=== PATIENT | male | born 1940 | race Caucasian/White ===

== ENCOUNTER 2017-12-19 05:38 | Inpatient (IN) | payer MEDICARE ==
[~2017-12-19] VITALS: Ht 180.3 cm; Wt 88.6 kg
[~2017-12-19 05:38] MED LIST: METOPROLOL SUCC25 MG PO; Z.0.BENICAR HCT 401 PO; Z.0.LIPITOR40 MG PO; Z.0.LORTAB 7.5-5001 PO; Z.0.LYRICA100 MG PO; Z.0.LYRICA50 MG PO
[2017-12-19] MEDS ORDERED: MORPHINE SULFATE 2 MG/ML SYR IV STA (05:52)
[2017-12-19] MEDS ORDERED: ONDANSETRON HCL INJ 2 MG/ML VIAL IV STA (05:52)
[2017-12-19] MEDS ORDERED: SODIUM CHLORIDE 0.9% 1000ML 1,000 ML IV ONE (06:00)
[2017-12-19] MEDS ORDERED: DIATRIZOATE MEGL/DIATRIZOA SOD 30 ML BTL PO ONE (06:04)
[2017-12-19 06:34] LABS: BASOPHILS # (AUTO) 0.1 (0.0-0.1); BASOPHILS % 0.2 % (0.0-1.0); HEMATOCRIT 45.5 % (38.2-49.6); HEMOGLOBIN 15.5 g/dL (14.0-18.0); LYMPHOCYTES # (AUTO) 1.8 (1.0-3.2); LYMPHOCYTES % 6.9 % (18.0-39.1); MEAN CORPUSCULAR HGB CONC 34.1 g/dL (31-35); MONOCYTES # (AUTO) 2.3 (0.2-0.8); MONOCYTES % 8.7 % (4.4-11.3); NEUTROPHILS # (AUTO) 21.7 (2.1-6.9); NEUTROPHILS % 83.3 % (38.7-80.0); PLATELET COUNT 289 x10e3/uL (140-360); RED BLOOD COUNT 5.17 x10e6/uL (4.3-5.7); RED CELL DISTRIBUTION WIDTH 13.9 % (11.7-14.4)
[2017-12-19 06:40] LABS: BILIRUBIN,URINE NEGATIVE (NEGATIVE); CLARITY,URINE CLEAR (CLEAR); COLOR,URINE YELLOW (YELLOW); KETONES,URINE NEGATIVE (NEGATIVE); LEUKOCYTE ESTERASE ,URINE NEGATIVE (NEGATIVE); NITRITE,URINE NEGATIVE (NEGATIVE); PROTEIN,URINE DIPSTICK NEGATIVE (NEGATIVE); URINE UROBILINOGEN 0.2 mg/dL (0.2 - 1)
[2017-12-19 06:49] LABS: BACTERIA,URINE RARE /HPF; EPITHELIAL CELLS,URINE RARE /LPF; TRANSITIONAL EPI CELLS,URINE RARE; WBC,URINE (MAN) 0-5 /HPF (0-5)
[2017-12-19 06:52] LABS: ALBUMIN 4.1 g/dL (3.5-5.0); ALBUMIN/GLOBULIN RATIO 1.2 (0.8-2.0); ANION GAP 18.8 mmol/L (8-16); CALCIUM 9.9 mg/dL (8.4-10.2); CREATININE, SERUM 1.48 mg/dL (0.72-1.25); POTASSIUM 3.8 mmol/L (3.5-5.1)
[2017-12-19] MEDS ORDERED: LEVOFLOXACIN 500MG/D5W 100ML 100 ML IV ONE (06:54)
[2017-12-19 06:58] LABS: CREATINE KINASE MB 2.6 ng/mL (0-5.0)
[2017-12-19 07:47] LABS: LYMPHOCYTES % (MANUAL) 8 % (19-48); MONOCYTES % (MANUAL) 7 % (3.4-9.0); NEUTROPHILS % (MANUAL) 85 % (40-74); PLATELET ESTIMATE ADEQUATE; PLATELET MORPHOLOGY COMMENT FEW GIANT; RBC MORPHOLOGY COMMENT NORMAL
[2017-12-19 07:48] LABS: ANISOCYTOSIS SLIGHT
[2017-12-19] MEDS ORDERED: LEVOFLOXACIN 500MG/D5W 100ML IV SCH (08:45)
[2017-12-19] MEDS ORDERED: MORPHINE SULFATE 2 MG/ML SYR IV PRN (08:45)
--- NOTE | 2017-12-19 08:46 | Diagnostic Imaging Report ---
PROCEDURE: CT ABDOMEN AND PELVIS WITH CONTRAST TECHNIQUE: The abdomen and pelvis were scanned utilizing a multidetector helical scanner from the diaphragm to the lesser trochanter after the IV administration of 100 cc of Isovue 370 and the oral administration of Gastrografin mixed with water. Coronal and sagittal multiplanar reformations were obtained. DLP: 670.44 mGy-cm COMPARISON: Patients [facility], CT, CT ABDOMEN/PELVIS WO, 01/02/2016, 15:45. INDICATIONS: ABDOMINAL PAIN, NAUSEA AND VOMITING FINDINGS: LOWER THORAX: Normal. HEPATOBILIARY: No focal hepatic lesions. No biliary ductal dilatation. The gallbladder is absent. SPLEEN: No splenomegaly. PANCREAS: No focal masses or ductal dilatation. ADRENALS: No adrenal nodules. KIDNEYS/URETERS: No hydronephrosis, stones, or solid mass lesions. Cysts on both kidneys are noted. PELVIC ORGANS/BLADDER: Bladder has an irregular contour with fat interface near the wall appearing unchanged. PERITONEUM / RETROPERITONEUM: No free air or fluid. LYMPH NODES: No lymphadenopathy. VESSELS: Scattered atherosclerotic calcification. There are two right renal arteries. GI TRACT: Dilated loops of small bowel in the left upper quadrant and mid abdomen represent small bowel obstruction likely secondary to adhesions. The stomach is also dilated. Bowel sutures in the sigmoid colon region are noted. BONES AND SOFT TISSUES: Bilateral pars interarticularis defects at L5. Scattered degenerative changes of the spine. Mild anterior listhesis of L4 on L5. IMPRESSION: Dilated loops of small bowel in the left upper quadrant and mid abdomen compatible with an incomplete small bowel obstruction. Jonas Youssef D.O. Dictated by: Jonas Youssef D.O. on 12/19/2017 at 8:08 Electronically approved by: Jonas Youssef D.O. on 12/19/2017 at 8:08
[2017-12-19] MEDS: LEVOFLOXACIN 500MG/D5W 100ML 100 ML IV SCH (09:00)
[2017-12-19] MEDS: ONDANSETRON HCL INJ 2 MG/ML VIAL IV PRN ×2 (10:10→19:10)
[2017-12-19 11:15] VITALS: BP 167/86
[2017-12-19] MEDS ORDERED: NORVASC5 MG PO (11:54)
[2017-12-19] MEDS ORDERED: ASPIR 8181 MG PO (11:54)
[2017-12-19] MEDS ORDERED: CENTRUM SILVER1 EAC3 PO (11:54)
[2017-12-19] MEDS ORDERED: ALLEGRA ALLERGY60 MG PO (11:54)
[2017-12-19] MEDS ORDERED: IOPAMIDOL 370 MG/ML 200 ML INFUS..BTL INJ ONE (12:48)
[2017-12-19] MEDS ORDERED: SODIUM CHLORIDE 0.9% 50ML 50 ML ONE (12:48)
[2017-12-19] MEDS ORDERED: DEXTROSE 5%/0.45% SOD CHL 1,000 ML IV SCH ×2 (13:15→14:15)
[2017-12-19] MEDS ORDERED: LACTATED RINGER'S 1,000 ML IV ONE (14:15)
[2017-12-19 14:19] VITALS: BP 167/86
[2017-12-19] MEDS: POTASSIUM CHLORIDE 10 MEQ in DEXTROSE 5%/0.45% SOD CHL 1,000 ML IV SCH ×2 (16:13→22:33)
[2017-12-19 16:20] VITALS: BP 165/90
[2017-12-19] MEDS: SODIUM CHLORIDE 0.9% IRRIG 3,000 ML BAG IR SCH ×2 (18:50→22:00)
[2017-12-19 20:00] VITALS: BP 148/85
[2017-12-20] VITALS (8 sets, daily range): BP systolic 132–145; BP diastolic 80–87
[2017-12-20] MEDS: SODIUM CHLORIDE 0.9% IRRIG 3,000 ML BAG IR SCH ×6 (02:00→22:00)
[2017-12-20 05:39] LABS: BASOPHILS % 0.2 % (0.0-1.0); EOSINOPHILS # (AUTO) 0.1 (0.0-0.4); EOSINOPHILS % 0.5 % (0.0-6.0); HEMATOCRIT 43.1 % (38.2-49.6); HEMOGLOBIN 14.7 g/dL (14.0-18.0); LYMPHOCYTES % 11.7 % (18.0-39.1); MEAN CORPUSCULAR HEMOGLOBIN 30.2 pg (28-32); MEAN CORPUSCULAR HGB CONC 34.1 g/dL (31-35); MEAN CORPUSCULAR VOLUME 88.5 fL (81-99); MONOCYTES # (AUTO) 2.6 (0.2-0.8); MONOCYTES % 15.2 % (4.4-11.3); NEUTROPHILS # (AUTO) 12.2 (2.1-6.9); NEUTROPHILS % 71.9 % (38.7-80.0); PLATELET COUNT 251 x10e3/uL (140-360); RED BLOOD COUNT 4.87 x10e6/uL (4.3-5.7); RED CELL DISTRIBUTION WIDTH 13.8 % (11.7-14.4)
[2017-12-20 06:02] LABS: ALBUMIN 3.3 g/dL (3.5-5.0); ALBUMIN/GLOBULIN RATIO 1.1 (0.8-2.0); ANION GAP 16.5 mmol/L (8-16); CALCIUM 8.8 mg/dL (8.4-10.2); CREATININE, SERUM 1.5 mg/dL (0.72-1.25); POTASSIUM 3.5 mmol/L (3.5-5.1)
[2017-12-20 06:19] LABS: ANISOCYTOSIS SLIGHT; LYMPHOCYTES % (MANUAL) 13 % (19-48); MONOCYTES % (MANUAL) 10 % (3.4-9.0); MYELOCYTES % (MANUAL) 1 % (0-0); NEUTROPHILS % (MANUAL) 76 % (40-74); PLATELET ESTIMATE ADEQUATE; PLATELET MORPHOLOGY COMMENT FEW LARGE; RBC MORPHOLOGY COMMENT NORMAL
[2017-12-20] MEDS: POTASSIUM CHLORIDE 10 MEQ in DEXTROSE 5%/0.45% SOD CHL 1,000 ML IV SCH (06:36)
[2017-12-20] MEDS: LEVOFLOXACIN 500MG/D5W 100ML 100 ML IV SCH (08:38)
[2017-12-20] MEDS ORDERED: PANTOPRAZOLE 40 MG 10ML VIAL IV ONE (10:30)
--- NOTE | 2017-12-20 11:24 | Diagnostic Imaging Report ---
PROCEDURE:ABDOMEN COMP INCL UPR OR DECUB COMPARISON:CT Abdomen/Pelvis 12/19/17. FINDINGS: There are dilated small bowel loops measuring up to 4.5 cm. There are multiple air fluid levels. Some air is seen in a non-dilated colon and rectum. Findings are consistent with a partial small bowel obstruction, similar to CT on 12/19/17. No evidence of free intraperitoneal air. Status post cholecystectomy. No acute bony findings. CONCLUSION: Continued partial small bowel obstruction. Dictated by: CHERYL WEEKS M.D. on 12/20/2017 at 8:34 Electronically approved by: CHERYL WEEKS M.D. on 12/20/2017 at 8:34
[2017-12-20] MEDS: POTASSIUM CHLORIDE 20 MEQ in DEXTROSE 5%/0.45% SOD CHL 1,000 ML IV SCH ×2 (13:28→18:09)
[2017-12-20] MEDS ORDERED: LACTATED RINGER'S 500 ML IV ONE (14:15)
[2017-12-21] VITALS (7 sets, daily range): BP systolic 124–156; BP diastolic 76–85
[2017-12-21] MEDS: SODIUM CHLORIDE 0.9% IRRIG 3,000 ML BAG IR SCH ×6 (02:00→22:00)
[2017-12-21] MEDS: POTASSIUM CHLORIDE 20 MEQ in DEXTROSE 5%/0.45% SOD CHL 1,000 ML IV SCH ×2 (02:14→09:24)
--- NOTE | 2017-12-21 05:23 | Diagnostic Imaging Report ---
EXAM: ABDOMEN-1VIEW (KUB), supine INDICATION: Small bowel obstruction COMPARISON: December 20, 2017 FINDINGS: LINES/TUBES: Nasogastric tube tip partially visualized in the upper abdomen. BOWEL PATTERN: No evidence for obstruction. SOFT TISSUES: No abnormal calcifications. LUNG BASES: Not included BONES: No acute findings. IMPRESSION: Nonobstructive bowel gas pattern Signed by: Dr. Mi Quesada M.D. on 12/21/2017 5:20 AM
[2017-12-21 06:35] LABS: BASOPHILS % 0.2 % (0.0-1.0); EOSINOPHILS # (AUTO) 0.3 (0.0-0.4); EOSINOPHILS % 2.8 % (0.0-6.0); HEMATOCRIT 42.1 % (38.2-49.6); HEMOGLOBIN 14.2 g/dL (14.0-18.0); LYMPHOCYTES # (AUTO) 1.7 (1.0-3.2); MEAN CORPUSCULAR HGB CONC 33.7 g/dL (31-35); MEAN CORPUSCULAR VOLUME 88.8 fL (81-99); MONOCYTES # (AUTO) 1.8 (0.2-0.8); MONOCYTES % 14.7 % (4.4-11.3); NEUTROPHILS # (AUTO) 8.3 (2.1-6.9); NEUTROPHILS % 67.9 % (38.7-80.0); PLATELET COUNT 205 x10e3/uL (140-360); RED BLOOD COUNT 4.74 x10e6/uL (4.3-5.7); RED CELL DISTRIBUTION WIDTH 13.4 % (11.7-14.4)
[2017-12-21 06:54] LABS: ALBUMIN 3.1 g/dL (3.5-5.0); ANION GAP 14.5 mmol/L (8-16); CALCIUM 8.6 mg/dL (8.4-10.2); CREATININE, SERUM 1.29 mg/dL (0.72-1.25); POTASSIUM 3.5 mmol/L (3.5-5.1)
[2017-12-21] MEDS: LEVOFLOXACIN 500MG/D5W 100ML 100 ML IV SCH (09:06)
[2017-12-21] MEDS: PANTOPRAZOLE 40 MG 10ML VIAL IV SCH (09:06)
[2017-12-21] MEDS ORDERED: DEXTROSE 5%/0.45% SOD CHL 1,000 ML IV ONE (09:24)
[2017-12-21] MEDS: D5.45%NS/KCL 20MEQ 1,000 ML IV SCH ×2 (10:13→18:10)
[2017-12-22] VITALS (8 sets, daily range): BP systolic 117–143; BP diastolic 74–90
[2017-12-22] MEDS: SODIUM CHLORIDE 0.9% IRRIG 3,000 ML BAG IR SCH ×6 (02:00→22:26)
[2017-12-22] MEDS: D5.45%NS/KCL 20MEQ 1,000 ML IV SCH ×3 (02:50→17:50)
[2017-12-22 05:47] LABS: BASOPHILS % 0.2 % (0.0-1.0); EOSINOPHILS # (AUTO) 0.3 (0.0-0.4); HEMATOCRIT 41.7 % (38.2-49.6); HEMOGLOBIN 14.2 g/dL (14.0-18.0); LYMPHOCYTES # (AUTO) 1.4 (1.0-3.2); LYMPHOCYTES % 14.9 % (18.0-39.1); MEAN CORPUSCULAR HEMOGLOBIN 30.1 pg (28-32); MEAN CORPUSCULAR HGB CONC 34.1 g/dL (31-35); MEAN CORPUSCULAR VOLUME 88.3 fL (81-99); MONOCYTES # (AUTO) 1.5 (0.2-0.8); MONOCYTES % 15.9 % (4.4-11.3); NEUTROPHILS % 65.5 % (38.7-80.0); PLATELET COUNT 195 x10e3/uL (140-360); RED BLOOD COUNT 4.72 x10e6/uL (4.3-5.7); RED CELL DISTRIBUTION WIDTH 13.3 % (11.7-14.4)
[2017-12-22 06:01] LABS: ALBUMIN 2.9 g/dL (3.5-5.0); ANION GAP 15.5 mmol/L (8-16); CALCIUM 8.3 mg/dL (8.4-10.2); CREATININE, SERUM 1.43 mg/dL (0.72-1.25); POTASSIUM 3.5 mmol/L (3.5-5.1)
--- NOTE | 2017-12-22 06:46 | Diagnostic Imaging Report ---
EXAM: ABDOMEN-1VIEW (KUB) INDICATION: Small bowel obstruction COMPARISON: AP view of the abdomen December 21, 2017 FINDINGS: LINES/TUBES: Tip of nasal/orogastric tube terminates in the expected location of the fundus of the stomach. BOWEL PATTERN: There are several loops of dilated small bowel in the left upper quadrant, similar to exam December 20, 2017. These were not included in field of view on December 21, 2017 exam. SOFT TISSUES: Surgical clips right upper quadrant of the abdomen. LUNG BASES: Left lower lobe atelectasis. BONES: No acute findings. IMPRESSION: Persistent small bowel obstruction in the left upper quadrant. Please note these loops of bowel were out of field of view on yesterday's exam. Signed by: Dr. Mi Quesada M.D. on 12/22/2017 6:43 AM
[2017-12-22] MEDS: LEVOFLOXACIN 500MG/D5W 100ML 100 ML IV SCH (09:03)
[2017-12-22] MEDS: PANTOPRAZOLE 40 MG 10ML VIAL IV SCH (09:04)
[2017-12-23] VITALS: BP 143/84
[2017-12-23] MEDS: SODIUM CHLORIDE 0.9% IRRIG 3,000 ML BAG IR SCH ×6 (02:03→22:00)
[2017-12-23] MEDS: D5.45%NS/KCL 20MEQ 1,000 ML IV SCH ×3 (02:04→21:20)
[2017-12-23 04:00] VITALS: BP 117/73
[2017-12-23 07:47] VITALS: BP 143/86
[2017-12-23] MEDS: PANTOPRAZOLE 40 MG 10ML VIAL IV SCH (09:16)
[2017-12-23] MEDS: LEVOFLOXACIN 500MG/D5W 100ML 100 ML IV SCH (09:16)
[2017-12-23 09:23] LABS: ANION GAP 13.3 mmol/L (8-16); CALCIUM 8.4 mg/dL (8.4-10.2); CREATININE, SERUM 1.32 mg/dL (0.72-1.25); POTASSIUM 4.3 mmol/L (3.5-5.1)
--- NOTE | 2017-12-23 12:47 | Diagnostic Imaging Report ---
PROCEDURE:ABDOMEN COMP INCL UPR OR DECUB INDICATION:Small bowel obstruction. COMPARISON:12/22/17 FINDINGS: Limited by body habitus. Nasogastric tube in place with tip overlying gastric fundus. Persistent dilated gas-filled small bowel loops are mostly left abdomen. Slight increase large bowel gas on the right side uncovertebral exam. No signs of pneumoperitoneum. Degenerative changes of spine. CONCLUSION: Persistent dilated gas-filled small bowel loops, mostly in left abdomen, representing small bowel obstruction. Mildly increased gas within the right large bowel and rectum when compared to prior exam, may be a sign of improvement. Recommend continued followup. Dictated by: Lico Guaman M.D. on 12/23/2017 at 12:53 Electronically approved by: Lico Guaman M.D. on 12/23/2017 at 12:53
[2017-12-23] MEDS ORDERED: MORPHINE SULFATE INJ 4 MG/ML INJ IV PRN (16:00)
[2017-12-23 16:43] VITALS: BP 153/92
[2017-12-23 20:00] VITALS: BP 167/90
[2017-12-24] VITALS (7 sets, daily range): BP systolic 140–178; BP diastolic 83–99
[2017-12-24] MEDS: SODIUM CHLORIDE 0.9% IRRIG 3,000 ML BAG IR SCH ×4 (02:00→19:28)
[2017-12-24] MEDS: D5.45%NS/KCL 20MEQ 1,000 ML IV SCH ×5 (05:30→23:22)
[2017-12-24] MEDS ORDERED: DIATRIZOATE MEGL/DIATRIZOA SOD 30 ML BTL PO ONE (07:15)
[2017-12-24] MEDS: LEVOFLOXACIN 500MG/D5W 100ML 100 ML IV SCH (08:16)
[2017-12-24] MEDS: PANTOPRAZOLE 40 MG 10ML VIAL IV SCH (08:16)
[2017-12-24] MEDS ORDERED: SODIUM CHLORIDE 0.9% 50ML 50 ML ONE (09:38)
[2017-12-24] MEDS ORDERED: IOPAMIDOL 370 MG/ML 200 ML INFUS..BTL INJ ONE (09:39)
--- NOTE | 2017-12-24 11:18 | Diagnostic Imaging Report ---
PROCEDURE: CT ABDOMEN AND PELVIS WITHOUT CONTRAST TECHNIQUE: The abdomen and pelvis were scanned utilizing a multidetector helical scanner from the diaphragm to the lesser trochanter after the oral administration of 900 cc of Gastrografin and water. No IV contrast was administered per protocol. Coronal and sagittal multiplanar reformations were obtained. COMPARISON: CT Abdomen/Pelvis 12/19/17. INDICATIONS: OBSTRUCTION FINDINGS: ABSENCE OF INTRAVENOUS CONTRAST DECREASES SENSITIVITY FOR DETECTION OF FOCAL LESIONS AND VASCULAR PATHOLOGY. LOWER THORAX: Normal. HEPATOBILIARY: No focal hepatic lesions. No biliary ductal dilatation. Status post cholecystectomy. SPLEEN: No splenomegaly. PANCREAS: No focal masses or ductal dilatation. ADRENALS: No adrenal nodules. KIDNEYS/URETERS: No hydronephrosis, stones, or solid mass lesions. Bilateral renal cysts are noted. PELVIC ORGANS/BLADDER: Bladder with irregular contour with fat interface near the wall is similar to prior CT. Enlarged prostate measuring 5.1 cm. PERITONEUM / RETROPERITONEUM: No free air or fluid. LYMPH NODES: No lymphadenopathy. VESSELS: Scattered aortic atherosclerotic changes. Two right renal arteries are present. GI TRACT: NG tube terminates in the stomach. Interval decrease in dilatation of small bowel loops which now measure up to 3.5 cm, previously 4.4 cm by our measurements. Findings are likely due to adhesions and with transition points in the left lower abdomen on series 2, image 50. There is decompressed non-dilated distal small bowel and colon. Sutures are noted in the sigmoid colon. BONES AND SOFT TISSUES: Bilateral pars defects at L5. Mild anterolisthesis of L4 on L5. Scattered degenerative changes of the spine. IMPRESSION: Findings consistent with improving partial small bowel obstruction, likely secondary to adhesions. Dictated by: CHERYL WEEKS M.D. on 12/24/2017 at 9:45 Electronically approved by: CHERYL WEEKS M.D. on 12/24/2017 at 9:45
[2017-12-24] MEDS: METOPROLOL SUCCINATE 25 MG TAB XL PO SCH (17:40)
[2017-12-24] MEDS: AMLODIPINE BESYLATE 5 MG TAB PO SCH (17:40)
[2017-12-24] MEDS: OLMESARTAN 20 MG TAB PO SCH (18:19)
[2017-12-24] MEDS: HYDROCHLOROTHIAZIDE 25 MG TAB PO SCH (18:22)
[2017-12-25] VITALS (8 sets, daily range): BP systolic 121–136; BP diastolic 69–87
[2017-12-25] MEDS ORDERED: AMLODIPINE BESYLATE 5 MG TAB PO SCH (09:00)
[2017-12-25] MEDS ORDERED: METOPROLOL SUCCINATE 25 MG TAB XL PO SCH (09:00)
[2017-12-25] MEDS ORDERED: LORATADINE 10 MG TAB PO SCH (09:00)
[2017-12-25] MEDS: HYDROCHLOROTHIAZIDE 25 MG TAB PO SCH ×2 (09:30→17:47)
[2017-12-25] MEDS: AMLODIPINE BESYLATE 5 MG TAB PO SCH (09:30)
[2017-12-25] MEDS: METOPROLOL SUCCINATE 25 MG TAB XL PO SCH (09:30)
[2017-12-25] MEDS: OLMESARTAN 20 MG TAB PO SCH ×2 (09:30→17:47)
[2017-12-25] MEDS: LORATADINE 10 MG TAB PO SCH (09:30)
[2017-12-25] MEDS: PANTOPRAZOLE 40 MG 10ML VIAL IV SCH (09:30)
[2017-12-25] MEDS: LEVOFLOXACIN 500MG/D5W 100ML 100 ML IV SCH (09:30)
[2017-12-25] MEDS ORDERED: ACETAMINOPHEN 325 MG TAB PO PRN (16:00)
[2017-12-26 00:20] VITALS: BP 123/77
[2017-12-26 05:50] VITALS: BP 103/64
[2017-12-26 08:12] VITALS: BP 122/71
[2017-12-26 08:25] VITALS: BP 122/71
[2017-12-26] MEDS: PANTOPRAZOLE 40 MG 10ML VIAL IV SCH (08:25)
[2017-12-26] MEDS: LORATADINE 10 MG TAB PO SCH (08:45)
[2017-12-26] MEDS: AMLODIPINE BESYLATE 5 MG TAB PO SCH (09:00)
[2017-12-26] MEDS: HYDROCHLOROTHIAZIDE 25 MG TAB PO SCH (09:00)
[2017-12-26] MEDS: METOPROLOL SUCCINATE 25 MG TAB XL PO SCH (09:00)
[2017-12-26] MEDS: OLMESARTAN 20 MG TAB PO SCH (09:00)
[2017-12-26] MEDS: D5.45%NS/KCL 20MEQ 1,000 ML IV SCH (10:40)
[2017-12-27] MEDS ORDERED: PANTOPRAZOLE SOD 40 MG TABEC PO SCH (07:30)
== END 2017-12-26 12:02 | disposition home or self-care (01) | DRG 390 ==
LOC: ER 05:38 → ERHOLD 08:38 → MED/SURG 10:38
DX: K56.600 Partial intestinal obstruction, unspecified as to cause (principal); E78.5 Hyperlipidemia, unspecified; Z90.49 Acquired absence of other specified parts of digestive tract; I12.9 Hypertensive chronic kidney disease with stage 1 through stage 4 chronic kidney disease, or unspecified chronic kidney disease; N18.3 Chronic kidney disease, stage 3 (moderate); D72.829 Elevated white blood cell count, unspecified; Z88.0 Allergy status to penicillin
CPT/HCPCS: 36415; 74018; 74176; 74177; 80048; 80053; 81001; 82150; 82550; 82553; 83690; 84484; 85025; 87040; 93005; 96361; 96367; 96374; 96376; 99284; J1956; J2270; J2405; J3480; J7030; J7120; Q9967

== ENCOUNTER → 2018-03-25 | Outpatient (CLI) | payer MEDICARE ==
[~2018-03-25] MED LIST changes: +ALLEGRA ALLERGY60 MG PO; +ASPIR 8181 MG PO; +CENTRUM SILVER1 EAC3 PO; +NORVASC5 MG PO
--- NOTE | 2018-03-25 10:38 | Diagnostic Imaging Report ---
MRI of the right hip without contrast. History: Hip pain. Arthritis. Decreased range of motion. Pain not responding to conservative management. Technique: Multiplanar multisequence MRI of the hip without contrast. Findings: There is no acute fracture, subluxation or avascular process. Scattered degenerative changes are seen about the pelvis and visualized lower lumbar spine. There is what appears to be a lobulated fat signal intensity mass along the posterior right lower back adjacent to the posterior elements. This is best seen on series 2 image 8 through 11. There is scattered diverticulosis without evidence of diverticulitis. The prostate gland is prominent in size measuring 5.2 cm medial to lateral and heterogeneous in appearance. The urinary bladder and remainder of the visualized pelvic structures are grossly unremarkable. There is mild degenerative arthrosis in the right hip joint with thinning of the articular cartilage at the superior lateral acetabulum and adjacent femoral head. There is minimal underlying bone marrow edema at the anterior acetabulum best seen on sagittal series 7 image 28. There is degeneration and fraying of the labrum. There is a physiologic amount of fluid in the hip joint. The remainder of the visualized ligaments and tendons about the hip are intact. There is mild right and left insertional hamstring tendinosis. The visualized muscles are otherwise normal in size, signal intensity and morphology. There is no evidence to suggest greater trochanteric bursitis. The visualized neurovascular bundles are intact. Impression: Apparent lobulated fat signal intensity mass along the posterior right lower back adjacent to the posterior elements. MRI of the lumbar spine is recommended for further evaluation. Prominent heterogeneous prostate gland. 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 Mild right and left insertional hamstring tendinosis Signed by: Dr. Antoni Hansen M.D. on 03/25/2018 10:33 AM
== END ==
LOC: MRI 07:28
PROVIDERS: ATTEND Family Medicine
DX: M16.11 Unilateral primary osteoarthritis, right hip (principal)